=== PATIENT | male | born 1955 | race Caucasian/White ===

== ENCOUNTER → 2016-11-07 | Outpatient (CLI) | payer BC | LOC: M ONCR 09:50 | PROVIDERS: ATTEND Radiology Radiation Oncology | DX: C61 Malignant neoplasm of prostate (principal) ==

== ENCOUNTER 2016-11-28 10:57 | Outpatient (RCR) | payer BC ==
--- NOTE | 2016-11-28 11:17 | RADONC ---
RADIATION ONCOLOGY SIMULATION NOTE DATE: 11/28/2016 CHART NUMBER: [id number] Mr. Coronado was taken to the CT scan for CT simulation of his prostate field. CT was accomplished without difficulty or discomfort. Radiation treatment planning is underway and radiation treatments will begin subsequently. An immobilization device was created and will be used throughout the course of treatment. I was physically present throughout the course of CT simulation.
--- NOTE | 2016-12-11 08:41 | RADONC ---
RADIATION ONCOLOGY PROGRESS NOTE DATE: 12/11/2016 CHART NUMBER: [id number] Mr. Mccarty underwent his first fraction of 180 cGy today to his prostate. It was tolerated without difficulty or discomfort. REVIEW OF SYSTEMS: The patient's review of systems is noncontributory. He denies nausea, vomiting, fevers, chills, night sweats, diplopia, headaches, anxiety or depression, anorexia, weight loss, visual disturbances, chest pain, urinary or bowel difficulties, bone pain or neurological problems. PHYSICAL EXAMINATION: The patient's skin clearly shows no evidence of radiation change present since he just underwent his first fraction of treatment. The remainder of his physical exam remains unchanged as well. Mr. Mccarty tolerated his first treatment quite well and radiation will continue as scheduled.
--- NOTE | 2016-12-18 10:28 | RADONC ---
RADIATION ONCOLOGY PROGRESS NOTE DATE: 12/18/2016 CHART NUMBER: [id number] Mr. Mccarty is presently at a dose of 1080 cGy to his prostate and is tolerating treatments quite well at this point with no complaints related to his radiation therapy. He is having no urinary or bowel difficulties and no bone pain. The patient's review of systems is noncontributory. He denies nausea, vomiting, fevers, chills, night sweats, diplopia, headaches, anxiety or depression, anorexia, weight loss, visual disturbances, chest pain, urinary or bowel difficulties, bone pain, or neurological problems. PHYSICAL EXAMINATION: The patient's skin is in good condition with no evidence of radiation change present. There is no moist or dry desquamation. The remainder of his physical exam remains unchanged. Mr. Mccarty is tolerating treatments quite well and radiation will continue as scheduled.
== END 2016-12-18 ==
LOC: M ONCR 10:57
PROVIDERS: ATTEND Radiology Radiation Oncology
DX: C61 Malignant neoplasm of prostate (principal)

== ENCOUNTER → 2016-11-28 | Outpatient (CLI) | payer BC ==
[~2016-11-28] MED LIST: BACT800T5 PO; PYRI1TAB5 PO
== END ==
LOC: M RAD 10:25
PROVIDERS: ATTEND Radiology Radiation Oncology
DX: C61 Malignant neoplasm of prostate (principal)

== ENCOUNTER 2016-12-19 11:15 | Outpatient (RCR) | payer BC ==
--- NOTE | 2016-12-25 09:17 | RADONC ---
RADIATION ONCOLOGY DATE: 12/25/2016 CHART NUMBER: [id number] Mr. Mccarty is presently at a dose of 1980 cGy to his prostate and overall has been doing well. He reports that last week he has had increased urinary frequency. He reports that he has been urinating every hour. He however feels somewhat better today. He has no bowel problems and no other complaints. REVIEW OF SYSTEMS: The patient's review of systems is positive for urinary frequency, but is otherwise noncontributory. He denies nausea, vomiting, fevers, chills, night sweats, diplopia, headaches, anxiety or depression, anorexia, weight loss, visual disturbances, chest pain, urinary or bowel difficulties, bone pain or neurological problems. PHYSICAL EXAMINATION: The patient's skin is in good condition with no evidence of radiation change present. There is no moist or dry desquamation. The remainder of his physical exam remains unchanged. Mr. Mccarty is tolerating treatments quite well and radiation will continue as scheduled. I have ordered a urinalysis and culture and sensitivity to be undertaken.
[2016-12-28] MEDS ORDERED: BACT800T5 PO (07:37)
--- NOTE | 2017-01-01 08:42 | RADONC ---
RADIATION ONCOLOGY PROGRESS NOTE: DATE: 01/01/2017 CHART NUMBER: [id number] Mr. Mccarty is presently at a dose of 2880 cGy to his prostate and is tolerating treatments quite well at this point with no complaints related to his radiation therapy. He is having no urinary or bowel difficulties and no bone pain. REVIEW OF SYSTEMS: The patient's review of systems is noncontributory. He denies nausea, vomiting, fevers, chills, night sweats, diplopia, headaches, anxiety or depression, anorexia, weight loss, visual disturbances, chest pain, urinary or bowel difficulties, bone pain, or neurological problems. PHYSICAL EXAMINATION: The patient's skin is in good condition with no evidence of radiation change present. There is no moist or dry desquamation. The remainder of his physical exam remains unchanged. Mr. Mccarty is tolerating treatments quite well and radiation will continue as scheduled.
--- NOTE | 2017-01-08 08:35 | RADONC ---
RADIATION ONCOLOGY PROGRESS NOTE DATE: 01/08/2017 CHART NUMBER: [id number] Mr. Coronado is presently at a dose of 3780 cGy to his prostate and is tolerating treatments quite well at this point with no complaints related to his radiation therapy. He is having no urinary or bowel difficulties and no bone pain. REVIEW OF SYSTEMS: The patient's review of systems is noncontributory. Denies nausea, vomiting, fevers, chills, night sweats, diplopia, headaches, anxiety or depression, anorexia, weight loss, visual disturbances, chest pain, urinary or bowel difficulties, bone pain, or neurological problems. PHYSICAL EXAMINATION: The patient's skin is in good condition with no evidence of radiation change present. There is no moist or dry desquamation. The remainder of his physical exam remains unchanged. Mr. Rockwell is tolerating treatments quite well and radiation will continue as scheduled.
--- NOTE | 2017-01-16 06:26 | RADONC ---
RADIATION ONCOLOGY PROGRESS NOTE DATE: 01/15/2017 CHART NUMBER: [id number] Mr. Mccarty is presently at a dose of 4680 cGy to his prostate and is tolerating treatments quite well at this point with no complaints related to his radiation therapy. He is having no urinary or bowel difficulties. No bone pain. REVIEW OF SYSTEMS: The patient's review of systems is noncontributory. Denies nausea, vomiting, fevers, chills, night sweats, diplopia, headaches, anxiety or depression, anorexia, weight loss, visual disturbances, chest pain, urinary or bowel difficulties, bone pain, or neurological problems. PHYSICAL EXAMINATION: The patient's skin is in good condition with no evidence of radiation change present. There is no moist or dry desquamation. The remainder of his physical exam remains unchanged. Mr. Mccarty is tolerating treatments quite well and radiation will continue as scheduled.
== END 2017-01-18 ==
LOC: M ONCR 11:15
PROVIDERS: ATTEND Radiology Radiation Oncology
DX: C61 Malignant neoplasm of prostate (principal)

== ENCOUNTER → 2016-12-25 | Outpatient (CLI) | payer BC | LOC: M LAB 08:07 | PROVIDERS: ATTEND Radiology Radiation Oncology | DX: R35.0 Frequency of micturition (principal); C61 Malignant neoplasm of prostate ==

== ENCOUNTER 2017-01-19 13:07 | Outpatient (RCR) | payer BC ==
[~2017-01-19 13:07] MED LIST changes: -PYRI1TAB5 PO
--- NOTE | 2017-01-24 08:51 | RADONC ---
RADIATION ONCOLOGY PROGRESS NOTE DATE: 01/23/2017 CHART NUMBER: [id number] Mr. Mccarty is presently at a dose of 5580 cGy to his prostate and is tolerating treatments quite well at this point with no complaints related to his radiation therapy. He is having no urinary or bowel difficulties and no bone pain. REVIEW OF SYSTEMS: The patient's review of systems is noncontributory. Denies nausea, vomiting, fevers, chills, night sweats, diplopia, headaches, anxiety or depression, anorexia, weight loss, visual disturbances, chest pain, urinary or bowel difficulties, bone pain, or neurological problems. PHYSICAL EXAMINATION: The patient's skin is in good condition with no evidence of moist or dry desquamation. The remainder of his physical exam remains unchanged. Ms. Mccarty is tolerating treatments quite well and radiation will continue as scheduled.
--- NOTE | 2017-01-29 09:33 | RADONC ---
RADIATION ONCOLOGY PROGRESS NOTE DATE: 01/29/2017 CHART NUMBER: [id number] Mr. Coronado is presently at a dose of 6300 cGy to his prostate and is tolerating treatments quite well at this point with no complaints related to his radiation therapy. He is having no urinary or bowel difficulties and no bone pain. REVIEW OF SYSTEMS: The patient's review of systems is noncontributory. Denies nausea, vomiting, fevers, chills, night sweats, diplopia, headaches, anxiety or depression, anorexia, weight loss, visual disturbances, chest pain, urinary or bowel difficulties, bone pain, or neurological problems. PHYSICAL EXAMINATION: The patient's skin is in good condition with no evidence of radiation change present. There is no moist or dry desquamation. The remainder of his physical exam remains unchanged. Mr. Coronado is tolerating treatments quite well and radiation will continue as scheduled.
[2017-02-08] MEDS ORDERED: PYRI1TAB5 PO (08:04)
== END 2017-02-17 ==
LOC: M ONCR 13:07
PROVIDERS: ATTEND Radiology Radiation Oncology
DX: C61 Malignant neoplasm of prostate (principal)

== ENCOUNTER → 2017-02-05 | Outpatient (CLI) | payer BC ==
[~2017-02-05] MED LIST changes: +PYRI1TAB5 PO
--- NOTE | 2017-02-05 09:18 | RADONC ---
RADIATION ONCOLOGY PROGRESS NOTE DATE: 02/05/2017 CHART NUMBER: [id number] Mr. Mccarty is presently at a dose of 7200 cGy to his prostate and is tolerating treatments quite well at this point with no new complaints related to his radiation therapy other than some burning urination, which has been worsening over the past couple of days. REVIEW OF SYSTEMS: The patient's review of systems is positive for burning upon urination, but is otherwise noncontributory. He denies nausea, vomiting, fevers, chills, night sweats, diplopia, headaches, anxiety or depression, anorexia, weight loss, visual disturbances, chest pain, bowel difficulties, bone pain or neurological problems. PHYSICAL EXAMINATION: The patient's skin is in good condition with no evidence of moist or dry desquamation. The remainder of his physical exam remains unchanged. Mr. Mccarty is tolerating treatments quite well at this point. I have ordered a urinalysis to be undertaken to rule out a urinary tract infection. In the meantime, radiation is continuing as scheduled.
--- NOTE | 2017-02-13 08:13 | RADONC ---
RADIATION ONCOLOGY TREATMENT SUMMARY DATE: 02/12/2017 CHART NUMBER: [id number] DIAGNOSIS: Prostate cancer. STAGE: I, [id number] ECOG PERFORMANCE STATUS: 0 TREATMENT SUMMARY: Mr. Mccarty is a very pleasant 61-year-old white male with the diagnosis of a stage I, [id number] moderately differentiated [place] score 6 (3-3) adenocarcinoma of the prostate with a PSA level 5.41, who presented to us for consideration of definitive external beam radiation therapy with IMRT/IGRT. We treated the patient to his prostate for a total dose of 7920 cGy delivered in 44 fractions of 180 cGy each over 60 elapsed days from 12/11/2016 through 02/09/2017. The patient's prostate was treated on the linear accelerator utilizing a 6 MV photon beam via IMRT/IGRT. We initially treated the prostate and seminal vesicles to a dose of 5400 cGy and subsequently delivered an additional dose of 2520 cGy to the prostate itself once again bringing the prostate to a total dose of 7920 cGy. Mr. Mccarty tolerated his treatments quite well and was able complete therapy as prescribed without interruption. I have scheduled the patient to see me again in 1 month for followup and he will continue to be followed by his other physicians as well. Thank you for allowing us to participate in the care of this very pleasant gentleman. If I could be of any further assistance or provide you with any information, please feel free to contact me at anytime. cc: MD Placido Jack MD
== END ==
LOC: M ONCR 08:10
PROVIDERS: ATTEND Radiology Radiation Oncology
DX: R30.0 Dysuria (principal); R35.0 Frequency of micturition; C61 Malignant neoplasm of prostate

== ENCOUNTER 2017-11-28 07:48 | Day surgery (SDC) | payer BC ==
[~2017-11-28 07:48] MED LIST changes: +ACETAMINOPHEN 325 MG TAB PO; -BACT800T5 PO; +PHENYLEPHRINE HCL 10 % OPHTH. SOL 5ML OD; +PROPARACAINE 0.5% OPHTH SOL 15ML OD; -PYRI1TAB5 PO
[2017-11-28] MEDS: LIDOCAINE 3.5 % 1ML OPHTH TOPICAL GEL OU (08:15)
[2017-11-28] MEDS ORDERED: LIDOCAINE 1% SDV 5 ML VIAL SQ (08:15)
[2017-11-28] MEDS: CYCLOPENTOLATE 2% OPHTH SOLN 2ML BTL OD (08:20)
[2017-11-28] MEDS: TROPICAMIDE 1% OPHTH SOLN 2ML OD (08:25)
[2017-11-28] MEDS: PHENYLEPHRINE 2.5% OPHTH SOL 2ML OD (08:25)
[2017-11-28 08:27] LABS: BEDSIDE GLUCOSE 100 MG/DL (80-115)
[2017-11-28] MEDS: OFLOXACIN 0.3 % (OCUFLOX) OPTH SOL 5ML OD (08:30)
[2017-11-28] MEDS: POVIDONE-IODINE 5% OPHTH PREP SOL 30ML As Ordered (09:03)
[2017-11-28] MEDS ORDERED: MIDAZOLAM INJ 2 MG/2 ML VIAL (J2250) As Ordered (09:15)
[2017-11-28] MEDS: BALANCED SALT IRRIGATION SOLUTION 500ML BAG (FOR OR EYE MACHINE) As Ordered (09:15)
[2017-11-28] MEDS ORDERED: fentaNYL 100 MCG/2 ML INJECTION (J3010) As Ordered (09:15)
[2017-11-28] MEDS: LIDOCAINE 1% SDV 5 ML VIAL As Ordered (09:15)
[2017-11-28] MEDS: CEFUROXIME 1MG/0.1ML INTRACAMERAL INJ As Ordered (09:15)
[2017-11-28] MEDS: HEALON DUET (HEALON 10MG/ML 0.55ML & HEALON ENDOCOAT 30MG/ML 0.85ML) As Ordered (09:15)
[2017-11-28] MEDS: ACETYLCHOLINE OPHTH SOLN 1% 2ML (MIOCHOL-E) As Ordered (09:22)
[2017-11-28] MEDS ORDERED: TRIMETHOBENZAMIDE 300 MG CAP PO (10:00)
[2017-11-28] MEDS: KETOROLAC 0.5% OPHTH SOLN OD (10:00)
[2017-11-28] MEDS: AcetaZOLAMIDE 500 MG ER CAP PO (10:00)
== END 2017-11-28 10:10 | disposition home or self-care (01) ==
LOC: M SDC 07:48
DX: H25.11 Age-related nuclear cataract, right eye (principal); H21.561 Pupillary abnormality, right eye; I10 Essential (primary) hypertension; E78.5 Hyperlipidemia, unspecified; E11.9 Type 2 diabetes mellitus without complications; Z79.899 Other long term (current) drug therapy; N18.9 Chronic kidney disease, unspecified; Z92.3 Personal history of irradiation; Z85.46 Personal history of malignant neoplasm of prostate; F17.290 Nicotine dependence, other tobacco product, uncomplicated
CPT/HCPCS: 66982

== ENCOUNTER → 2018-04-17 | Outpatient (CLI) | payer BC | LOC: M ONCR 14:40 | DX: Z08 Encounter for follow-up examination after completed treatment for malignant neoplasm (principal); C61 Malignant neoplasm of prostate; Z92.3 Personal history of irradiation | CPT/HCPCS: G0463 ==

== ENCOUNTER → 2018-10-16 | Outpatient (CLI) | payer BC ==
[~2018-10-16] MED LIST changes: -ACETAMINOPHEN 325 MG TAB PO; +AMLO5TAB6 PO; +ATOR1TAB19 PO; +BACT800T5 PO; +GLIM2TAB PO; +JANU100T PO; +LABE10TAB PO; -PHENYLEPHRINE HCL 10 % OPHTH. SOL 5ML OD; +POTA1TAB14 PO; -PROPARACAINE 0.5% OPHTH SOL 15ML OD; +PYRI1TAB5 PO
--- NOTE | 2018-10-17 07:24 | RADONC ---
RADIATION ONCOLOGY FOLLOWUP NOTE DATE: 10/16/2018 CHART NUMBER: DIAGNOSIS: Prostate cancer. STAGE: Stage I, [id number]. ECOG PERFORMANCE STATUS: 0. FOLLOWUP NOTE: Mr. Mccarty is a very pleasant 62-year-old white male with the diagnosis of a stage I, [id number], moderately differentiated [place] score 6 (3+3) adenocarcinoma of the prostate with an initial PSA level of 5.41 who is presenting to us today for routine followup visit 1 year and 8 months post completion of external beam radiation therapy. The patient presents today reporting that he is doing quite well with no complaints at this time related to his radiation therapy disease. He is having no urinary or bowel difficulties. No bone pain. The patient's review of systems is noncontributory. Denies nausea, vomiting, fevers, chills, night sweats, diplopia, headaches, anxiety or depression, anorexia, weight loss, visual disturbances, chest pain, urinary or bowel difficulties, bone pain, or neurological problems. PHYSICAL EXAMINATION: The patient is a well-developed, well-nourished male in no acute distress. HEENT exam is normocephalic, atraumatic. Extraocular movements are intact. There is no palpable cervical, supraclavicular, infraclavicular, axillary, or inguinal lymphadenopathy present. Lungs are clear to auscultation and percussion. Heart has a regular rate and rhythm. Abdomen is benign with no hepatosplenomegaly, masses, or tenderness. Rectal examination reveals a normal anal sphincter tone. His prostate is smooth with no evidence of nodularity. Skeletal examination reveals no tenderness to pressure or percussion of the bony skeleton. Extremities reveal no clubbing, cyanosis, or edema. Neurologic exam is grossly intact, as is the remainder of the physical examination. ASSESSMENT: The patient is clinically TOMASA at this time and will be seen by us again in 6 months for further followup. He will also continue to be followed by his other physicians as well. cc: MD Placido Jack MD
== END ==
LOC: M ONCR 09:49
PROVIDERS: ATTEND Radiology Radiation Oncology
DX: C61 Malignant neoplasm of prostate (principal)

== ENCOUNTER → 2019-04-16 | Outpatient (CLI) | payer BC, MEDICARE ==
[~2019-04-16] MED LIST changes: -GLIM2TAB PO; +GLIM2TAB2 PO
--- NOTE | 2019-04-20 08:33 | RADONC ---
RADIATION ONCOLOGY FOLLOWUP NOTE DATE: 04/16/2019 CHART NUMBER: [id number] DIAGNOSIS: Prostate cancer. STAGE: I, [id number]. ECOG PERFORMANCE STATUS: 0. FOLLOW NOTE: Mr. Mccarty is a very pleasant 63-year-old white male with the diagnosis of a stage I, [id number], moderately differentiated [place] score 6 (3-3) adenocarcinoma of prostate with initial PSA level 5.41 who is presenting to us today for routine followup visit 2 years and 2 months post completion of external beam radiation therapy. The patient presents today reporting that he is doing quite well with no complaints at this time related to his radiation therapy or disease. He has no urinary or bowel difficulties and no bone pain. The patient's review of systems is noncontributory. He denies nausea, vomiting, fevers, chills, night sweats, diplopia, headaches, anxiety or depression, anorexia, weight loss, visual disturbances, chest pain, urinary or bowel difficulties, bone pain, or neurological problems. PHYSICAL EXAMINATION: The patient is a well-developed, well-nourished male in no acute distress. HEENT exam is normocephalic, atraumatic. Extraocular movements are intact. There is no palpable cervical, supraclavicular, infraclavicular, axillary, or inguinal lymphadenopathy present. Lungs are clear to auscultation and percussion. Heart has a regular rate and rhythm. Abdomen is benign with no hepatosplenomegaly, masses, or tenderness. Rectal examination reveals a normal anal sphincter tone. His prostate is smooth with no evidence of nodularity. Skeletal examination reveals no tenderness to pressure or percussion of the bony skeleton. Extremities reveal no clubbing, cyanosis, or edema. Neurologic exam is grossly intact as is the remainder of the physical examination. ASSESSMENT: The patient is clinically TOMASA at this time and will be seen by us again in 6 months for further followup. He will also continue to be followed by his other physicians as well. cc: MD Placido Jack MD
== END ==
LOC: M ONCR 10:30
PROVIDERS: ATTEND Radiology Radiation Oncology
DX: C61 Malignant neoplasm of prostate (principal)

== ENCOUNTER → 2019-09-24 | Outpatient (CLI) | payer MEDICARE, OTHER ==
[~2019-09-24] MED LIST changes: -GLIM2TAB2 PO; +GLIM2TAB4 PO
--- NOTE | 2019-09-26 16:24 | RADONC ---
RADIATION ONCOLOGY FOLLOWUP NOTE DATE: 09/24/2019 This is a telemedicine visit. The patient was informed of the risks including security breech, technological failure, inability to perform a comprehensive physical exam which could delay or prevent an accurate diagnosis, and potential complications from treatment decisions rendered over a telemedicine platform. The patient understands and consented to the use of telehealth services phone only. CHART NUMBER: [id number] DIAGNOSIS: Prostate cancer. STAGE: I, T2a, N0, M0 ECOG PERFORMANCE STATUS: 0 FOLLOWUP NOTE: Mr. Rockwell is a very pleasant 64-year-old white male with the diagnosis of a stage I, T2a, N0,M0 moderately differentiated [place] score 6 (3-3) adenocarcinoma of the prostate with initial PSA level of 5.41 who is presenting to us today for telephone followup consultation almost 3 years post completion of external beam radiation therapy. The patient presents today by telephone reporting he is doing quite well with no complaints at this time related to his radiation therapy or disease. He is having no urinary or bowel difficulties and no bone pain. REVIEW OF SYSTEMS: The patient's review of systems is noncontributory. Denies nausea, vomiting, fevers, chills, night sweats, diplopia, headaches, anxiety or depression, anorexia, weight loss, visual disturbances, chest pain, urinary or bowel difficulties, bone pain, or neurological problems. PHYSICAL EXAMINATION: Physical examination was deferred at this point secondary to COVID-19 precautions. This was a telephone consultation. ASSESSMENT: The patient is clinically TOMASA at this time with a PSA level continuing to come down as of 09/17/2019 of 0.21. I have scheduled him for routine followup in our office in 6 months' time. cc: MD Placido Jack MD
== END ==
LOC: M ONCR 09:07
PROVIDERS: ATTEND Radiology Radiation Oncology
DX: C61 Malignant neoplasm of prostate (principal)

== ENCOUNTER → 2020-04-28 | Outpatient (CLI) | payer MEDICARE, OTHER ==
[~2020-04-28] MED LIST changes: +AMLO1TAB24 PO; -AMLO5TAB6 PO; +LABE100T4 PO; -LABE10TAB PO; +NATE60TA5 PO
--- NOTE | 2020-04-28 12:53 | RADONC ---
Radiation Oncology Hx/FUP Radiation Oncology Hx/FUP Date of Service: Apr 28, 2020 Pt Identifier Noah Coronado is a 65 year old male seen for a followup visit today at the department of radiation oncology for a history of low risk prostate cancer T2a [place] 3+3=6 PSA 5.41, he completed EBRT to 79.2 Gy in 44 fractions on 02/09/17. Diagnosis/Treatment History Oncologic History PSA history 04/02/20 0.24 09/17/19 0.21 04/14/19 0.32 10/15/18 0.49 04/10/18 0.98 09/24/17 1.06 03/19/17 2.95 07/26/06 5.41 Interval History Feels well. 1x nocturia stable. No difficulty with stream or emptying. He has normal BM 1x daily. No BRBPR. He has recently had a gluteal abscess drained, and still has the wick in place. It is feeling much better. He has no fevers chills nausea vomiting or dysuria. Current Therapy Surveillance Stage Low risk prostate cancer T1c [place] 3+3=6 PSA 5.41 Social History: Non-smoker Non-drinker Allergies / Meds Allergies: Coded Allergies: No Known Allergies (Unverified , 11/16/17) Home Meds Reported Medications Atorvastatin Calcium (Atorvastatin Calcium) 10 Mg Tab, 10 MG PO DAILY, TAB 11/16/17 Amlodipine Besylate (Amlodipine Besylate) 5 Mg Tab, 5 MG PO DAILY, TAB 11/16/17 Labetalol HCl (Labetalol HCl) 100 Mg Tab, 100 MG PO BID, TAB 11/16/17 Sitagliptin Phosphate (Januvia) 100 Mg Tab, 50 MG PO DAILY, TAB 11/16/17 Glimepiride (Glimepiride) 2 Mg Tab, 2 MG PO DAILY, TAB 11/16/17 Potassium Chloride (Potassium Chloride) 20 Meq Tab, 20 MEQ PO BID, TAB 11/16/17 Review of Systems Review of Systems Constitutional: Denies: Chills, Fever, Weakness, Weight Loss Eyes: Denies: Pain HEENT: Denies: Head Aches Pulmonary: Denies: Dyspnea, Cough Cardiovascular: Denies: Chest Pain, Palpitations Gastrointestinal: Denies: Nausea, Vomiting, Diarrhea, Hematochezia Genitourinary: Denies: Dysuria, Frequency, Incontinence Hematologic: Denies: Bruising Musculoskeletal: Denies: Neck pain, Back pain Neurological: Denies: Weakness, Numbness Psych: Reports: Mood Normal Physical Examination Vital Signs Ht 69" Wt 243 lbs BMI 35.8 T 98.5 P 82 RR 18 BP 159/82 O2 95% Pain 0 Fatigue 0 General Exam: Positive: Alert, Cooperative, No Acute Distress Eye Exam: Positive: PERRLA, EOMI ENT EXAM: Positive: Atraumatic, Mucous membr. moist/pink Neck Exam: Positive: Supple Chest Exam: Positive: Clear to auscultation, Normal air movement Heart Exam: Positive: Rate Normal, Regular Rhythm Abdomen Exam: Positive: Normal bowel sounds, Soft; Negative: Tenderness Extremity Exam: Negative: Edema Skin Exam: Positive: Nl turgor and temperature Neuro Exam: Positive: Normal Gait, Normal Speech, Cranial Nerves 3-12 NL Psych Exam: Positive: Mental status NL Other Physical Findings Deferred Diagnostic and Laboratory Diagnostic Review Radiologic images, relevant labs and pathology reports were personally reviewed and discussed with Mr. Coronado. Assessment and Plan Impression Assessment Mr. Coronado is a 65 year old male with a history of low risk prostate cancer T2a [place] 3+3=6 PSA 5.41, he completed EBRT to 79.2 Gy in 44 fractions on 02/09/17. Doing well today. No late GI or sequelae of RT. PSA control is excellent. Therefore will continue annual PSA surveillance. I did personal counselor him to call me with any urinary or bowel concerns especially rectal bleeding. Performance Status ECOG 0 Plan 1 year with PSA Mr. Coronado was encouraged to call with questions or concerns in the interim BOOKER Mckeon MD Apr 28, 2020 12:53
== END ==
LOC: M ONCR 10:51
PROVIDERS: ATTEND General Practice
DX: C61 Malignant neoplasm of prostate (principal); Z92.3 Personal history of irradiation

== ENCOUNTER → 2021-04-27 | Outpatient (CLI) | payer MEDICARE ==
[~2021-04-27] MED LIST changes: +TRUL0.5I; +VASC1CAP2
--- NOTE | 2021-04-27 12:16 | RADONC ---
Radiation Oncology Hx/FUP Radiation Oncology Hx/FUP Date of Service: Apr 27, 2021 Pt Identifier Noah Coronado is a 66 year old male seen for a followup visit today at the department of radiation oncology for a history of low risk prostate cancer T2a [place] 3+3=6 PSA 5.41, he completed EBRT to 79.2 Gy in 44 fractions on 02/09/17. Diagnosis/Treatment History Oncologic History PSA history 04/25/21 0.22 04/02/20 0.24 09/17/19 0.21 04/14/19 0.32 10/15/18 0.49 04/10/18 0.98 09/24/17 1.06 03/19/17 2.95 07/26/06 5.41 Interval History Feels well. He has no urinary complaints. 1x nocturia, no issues with stream. He has no BRBPR or bowel complaints. He has been hunting avidly in nursing home. 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 Current Therapy Surveillance Stage Low risk prostate cancer T1c [place] 3+3=6 PSA 5.41 Social History: Non-smoker Non-drinker Allergies / Meds Allergies: Coded Allergies: No Known Allergies (Unverified , 11/16/17) Home Meds Reported Medications Icosapent Ethyl (Vascepa) 1 Gm Capsule, 1 TAB DAILY 04/27/21 Dulaglutide (Trulicity) 1.5 Mg/0.5 Ml Pen.injctr 04/27/21 Nateglinide (Nateglinide) 60 Mg Tablet, 60 MG PO DAILY for 30 Days, TAB 04/28/20 Atorvastatin Calcium (Atorvastatin Calcium) 10 Mg Tab, 10 MG PO DAILY, TAB 11/16/17 Amlodipine Besylate (Amlodipine Besylate) 5 Mg Tab, 5 MG PO DAILY, TAB 11/16/17 Labetalol HCl (Labetalol HCl) 100 Mg Tab, 100 MG PO BID, TAB 11/16/17 Glimepiride (Glimepiride) 2 Mg Tab, 2 MG PO DAILY, TAB 11/16/17 Potassium Chloride (Potassium Chloride) 20 Meq Tab, 20 MEQ PO BID, TAB 11/16/17 Review of Systems Review of Systems Constitutional: Reports: Normal appetite; Denies: Fatigue Gastrointestinal: Denies: Diarrhea, Hematochezia Genitourinary: Denies: Dysuria, Frequency, Incontinence, Hematuria, Retention Musculoskeletal: Denies: Neck pain, Back pain Neurological: Denies: Weakness, Numbness Psych: Reports: Mood Normal Physical Examination Vital Signs Ht 69" Wt 243 lbs BMI 36 T 98.5 P 82 RR 18 BP 159/82 O2 95% Pain 0 Fatigue 0 General Exam: Alert, Cooperative, No Acute Distress Eye Exam: PERRLA, EOMI Chest Exam: Clear to auscultation Heart Exam: Rate Normal Abdomen Exam: Soft; Negative: Tenderness Extremity Exam: Negative: Edema Skin Exam: Nl turgor and temperature Neuro Exam: Normal Gait, Normal Speech, Cranial Nerves 3-12 NL Psych Exam: Mental status NL Diagnostic and Laboratory Diagnostic Review Radiologic images, relevant labs and pathology reports were personally reviewed and discussed with Mr. Coronado. Assessment and Plan Impression Assessment Mr. Coronado is a 66 year old male with a history of low risk prostate cancer T2a [place] 3+3=6 PSA 5.41, he completed EBRT to 79.2 Gy in 44 fractions on 02/09/17. He is doing well overall. No bowel or bladder complaints. PSA remains stable and low. Therefore can see again in 12 months. Performance Status ECOG 0 Plan 12 months with PSA Mr. Coronado was encouraged to call with questions or concerns in the interim period. Billing Statement Total time of [22] minutes was spent preparing for the visit [1], obtaining HPI [5], examining the patient [2], reviewing diagnostic tests [2], discussing management options [7], coordinating care [2], and writing this note [5]. BOOKER LEE MD Apr 27, 2021 12:16
== END ==
LOC: M ONCR 10:28
PROVIDERS: ATTEND General Practice
DX: C61 Malignant neoplasm of prostate (principal); Z92.3 Personal history of irradiation; Z79.891 Long term (current) use of opiate analgesic